=== PATIENT | female | born 1970 | race Caucasian/White ===

== ENCOUNTER 2021-03-25 09:16 | Emergency (ER) | payer BC ==
--- NOTE | 2021-03-25 09:33 | EDM.PDOC ---
ED HPI GENERAL MEDICAL PROBLEM - General Chief Complaint: ENT Problem Stated Complaint: FELL AND EYE IS SWOLLEN Time Seen by Provider: 03/25/21 09:21 Source of Information: Reports: Patient History Limitations: Reports: No Limitations - History of Present Illness INITIAL COMMENTS - FREE TEXT/NARRATIVE: Patient is a 50-year-old female who presents today after falling down the steps. Patient that she was moving a rug when she got tangled took a tumble. Patient that she hit the right side of her face. Patient she was able to get up walk around and even drive her self to the ER today. Patient mentioned that she did take some Motrin today as her eye started to swell up after she blew her nose. Patient states she has no change in vision no neck pain no headache no LOC no pain to extremities or trunk. Patient denies any nausea vomiting currently. right FACE Pain Score (Numeric/FACES): 3 - Related Data Allergies Allergy/AdvReac Type Severity Reaction Status Date / Time No Known Allergies Allergy Verified 03/25/21 09:26 Home Meds: Home Meds Acetaminophen/oxyCODONE [Percocet 325-5 MG] 1 each PO Q8HR PRN 5 Days #15 tab 03/25/21 [Rx] Acetaminophen/oxyCODONE [Percocet 325-5 MG] 1 each PO Q8HR PRN 7 Days #21 tab 03/25/21 [Rx] Clindamycin HCl 300 mg PO TID 7 Days #21 capsule 03/25/21 [Rx] Docusate Sodium 100 mg PO BID 7 Days #14 capsule 03/25/21 [Rx] SUMAtriptan [Imitrex] 100 mg PO ASDIRECTED 03/25/21 [History] ED ROS GENERAL - Review of Systems Review Of Systems: See Below Constitutional: Reports: No Symptoms HEENT: Reports: No Symptoms Respiratory: Reports: No Symptoms Cardiovascular: Reports: No Symptoms Endocrine: Reports: No Symptoms GI/Abdominal: Reports: No Symptoms : Reports: No Symptoms Musculoskeletal: Reports: No Symptoms Skin: Reports: No Symptoms Neurological: Reports: No Symptoms Psychiatric: Reports: No Symptoms Hematologic/Lymphatic: Reports: No Symptoms Immunologic: Reports: No Symptoms ED EXAM, HEAD INJURY - Physical Exam Exam: See Below Exam Limited By: No Limitations General Appearance: Alert, WD/WN, No Apparent Distress Head: Facial Swelling Eyes: Right Eye: Periorbital Changes, Bilateral Eye: EOMI, PERRL Ears: Normal External Exam Nose: Normal Inspection, Normal Mucousa, No Blood Neck: Non-Tender, Full Range of Motion, Normal Alignment Respiratory: No Respiratory Distress, Lungs Clear, Normal Breath Sounds Cardiovascular: Normal Peripheral Pulses, Regular Rate, Rhythm Back Exam: Normal Inspection, Full Range of Motion, Vertebral Tenderness Extremities: Normal Inspection, Normal Range of Motion Neurologic: tile mechanic helper II-XII nml As Tested, No Motor/Sensory Deficits, Alert, Oriented x 3 - [place] Coma Score Best Eye Response (Trace): (4) Open Spontaneously Best Verbal Response (Trace): (5) Oriented Best Motor Response (Trace): (6) Obeys Commands Course - Vital Signs Last Recorded V/S: Last Vital Signs Temp 96.7 F L 03/25/21 09:20 Pulse 68 03/25/21 10:58 Resp 17 03/25/21 10:58 BP 148/89 H 03/25/21 10:58 Pulse Ox 96 03/25/21 10:58 - Orders/Labs/Meds Meds: Medications Discontinued Medications Generic Name Dose Route Start Last Admin Trade Name Kraig PRN Reason Stop Dose Admin Ondansetron HCl 4 mg 03/25/21 10:20 03/25/21 10:32 Ondansetron 4 Mg Tab.Dis PO 03/25/21 10:21 Not Given ONETIME ONE Oxycodone/Acetaminophen 1 tab 03/25/21 10:20 03/25/21 10:30 Acetaminophen/Oxycodone 325-5 Mg Tab PO 03/25/21 10:21 1 tab ONETIME ONE Administration - Re-Assessments/Exams Free Text/Narrative Re-Assessment/Exam: 03/25/21 11:03 Has overall floor fracture but has good extraocular movement. We spoke to ENT at [facility] Dr. Whittaker who states that patient can be follow-up in a week as outpatient will provide patient number to call to obtain appointments. Patient will be sent home antibiotics and pain control. Departure - Departure Time of Disposition: 11:03 Disposition: Home, Self-Care 01 Condition: Good Clinical Impression: Orbital fracture - Discharge Information *PRESCRIPTION DRUG MONITORING PROGRAM REVIEWED*: Not Applicable *COPY OF PRESCRIPTION DRUG MONITORING REPORT IN PATIENT TIMO: Not Applicable Prescriptions: Clindamycin HCl 300 mg PO TID 7 Days #21 capsule Docusate Sodium 100 mg PO BID 7 Days #14 capsule Acetaminophen/oxyCODONE [Percocet 325-5 MG] 1 each PO Q8HR PRN 5 Days #15 tab PRN Reason: Pain (Severe 7-10) Acetaminophen/oxyCODONE [Percocet 325-5 MG] 1 each PO Q8HR PRN 7 Days #21 tab PRN Reason: Pain (Severe 7-10) Instructions: Orbital Floor Fracture Forms: ED Department Discharge Additional Instructions: The following information is given to patients seen in the emergency department who are being discharged to home. This information is to outline your options for follow-up care. We provide all patients seen in our emergency department with a follow-up referral. The need for follow-up, as well as the timing and circumstances, are variable depending upon the specifics of your emergency department visit. If you don't have a primary care physician on staff, we will provide you with a referral. We always advise you to contact your personal physician following an emergency department visit to inform them of the circumstance of the visit and for follow-up with them and/or the need for any referrals to a consulting specialist. The emergency department will also refer you to a specialist when appropriate. This referral assures that you have the opportunity for follow-up care with a specialist. All of these measure are taken in an effort to provide you with optimal care, which includes your follow-up. Under all circumstances we always encourage you to contact your private physician who remains a resource for coordinating your care. When calling for follow-up care, please make the office aware that this follow-up is from your recent emergency room visit. If for any reason you are refused follow-up, please contact the [facility] Emergency Department at and asked to speak to the emergency department charge nurse. Please follow up with your primary care physician. If you do not have a primary care physician, see below: ENT Dr. [facility] [phone] [place] [address] You were seen today for a fall and you suffered a right orbital bone blowout fracture. You have no entrapment of the eye muscles but there is some fat stuck into the fracture. We spoke to the ENT doctor at [facility] and you can be seen there next week as an outpatient. We will send you home with antibiotics and pain meds. In the meantime please do not blow your nose or have any strenuous activity. If he had any trouble moving your eye increased swelling or pain please return to the ED immediately. Sepsis Event Note (ED) - Evaluation Sepsis Screening Result: No Definite Risk - Focused Exam Vital Signs: Vital Signs Temp Pulse Resp BP Pulse Ox 03/25/21 10:58 68 17 148/89 H 96 03/25/21 09:20 96.7 F L 85 18 150/90 H 100 - Assessment/Plan Plan: Patient is a 50-year-old female who presents today for fall down steps. Patient is swollen over the right thigh. Patient has good extraocular movement. Will obtain CT head and facial bones to rule out any fractures or injuries. Patient this time not wanting any pain meds.
--- NOTE | 2021-03-25 10:15 | CT ---
Indication: Fell down stairs pain and swelling over right eye Technique: Volumetric multidetector CT images of the head were obtained without the administration of low osmolar intravenous contrast. Comparison: None available Findings: There is no intra-axial or extra-axial fluid collection. There is no mass effect or midline shift. The ventricles and sulci are normal in size and position for age. The brain parenchyma is grossly preserved in attenuation and morales-white differentiation. There is right periorbital preseptal soft tissue swelling with minimal subcutaneous emphysema. There is minimal air seen within the posterior extra conal space without evidence of retrobulbar hematoma. There is demonstration of a orbital blowout type fracture with subcutaneous emphysema within the periorbital soft tissues. The bony calvarium is grossly intact. The paranasal sinuses are clear. The mastoid air cells are well aerated. Impression: Demonstration of right periorbital preseptal soft tissue swelling and subcutaneous emphysema with an orbital blowout fracture of the right orbital floor. No evidence of acute intracranial abnormality. Please note that all CT scans at this facility use dose modulation, iterative reconstruction, and/or weight-based dosing when appropriate to reduce radiation dose to as low as reasonably achievable. Dictated by Cornelius Pappas MD @ 03/25/2021 10:13:[address] Cornelius Pappas @ Mar 25 2021 10:13AM
--- NOTE | 2021-03-25 10:19 | CT ---
Indication: Fall downstairs pain and swelling over right eye Technique: Volumetric multidetector CT images of the facial bones were obtained without the administration of IV contrast. Comparison: None available. Findings: The partially visualized brain is normal in attenuation without evidence of midline shift or fluid collection. The paranasal sinuses are clear without evidence of air-fluid level. There is demonstration of a right orbital blowout fracture with herniated orbital fat but without definite evidence of herniated extraocular muscle. There is moderate right periorbital preseptal soft tissue swelling and subcutaneous emphysema. The zygomatic arches are grossly intact. The bilateral maxillae are intact. The pterygoid plates are grossly intact. There is mildly displaced fracture of the right nasal bones. The anterior nasal spine is intact. The mandible is grossly well located. Moderate degenerative changes of the temporomandibular joints are appreciated. The partially visualized cervical spine is within normal limits. Impression: Demonstration of a right orbital blowout fracture with herniated orbital fat but without definite evidence of extraocular muscle involvement. There is moderate subcutaneous emphysema within the periorbital, preseptal soft tissues. There is no intraconal hematoma. Minimally displaced fracture of the left nasal bone. Please note that all CT scans at this facility use dose modulation, iterative reconstruction, and/or weight-based dosing when appropriate to reduce radiation dose to as low as reasonably achievable. Dictated by Cornelius Pappas MD @ 03/25/2021 10:19:[address] Cornelius Pappas @ Mar 25 2021 10:19AM
[2021-03-25] MEDS ORDERED: Acetaminophen/oxyCODONE 325-5 MG Tab PO ONE (10:20)
[2021-03-25] MEDS ORDERED: Ondansetron 4 MG Tab.DIS PO ONE (10:20)
--- NOTE | 2021-03-26 11:00 | PCM.SN.2 ---
- Free Text/Narrative Note: Sarah my not ENT called and states that the ENT plastic surgeon who I spoke to yesterday Dr. Whittaker will not be available to see the patient as he is going out of town for a month. We were able to call Dr. Almaguer and [facility] that can see the patient next week we spoke directly to him and his staff will call the patient and schedule appointment. I also called Mrs. Peña and spoke to her about this and gave her the phone number to follow-up with them if they do not call her. Patient is fully understandable. We also fax over the information and sent images to [facility] as well. Time patient scheduled to see the ENT next Monday.
== END 2021-03-25 11:25 | disposition home or self-care (01) ==
LOC: MW.ED 09:16
DX: S02.31XA Fracture of orbital floor, right side, initial encounter for closed fracture (principal); W18.09XA Striking against other object with subsequent fall, initial encounter; W10.9XXA Fall (on) (from) unspecified stairs and steps, initial encounter
CPT/HCPCS: 70450; 70486; 99283; A9270

== ENCOUNTER 2021-03-27 12:15 | Emergency (ER) | payer BC ==
[2021-03-27] MEDS ORDERED: Ketorolac 30 MG/ML SDV IM ONE (12:43)
[2021-03-27] MEDS ORDERED: Ondansetron 4 MG Tab.DIS PO ONE (12:43)
--- NOTE | 2021-03-27 12:48 | EDM.PDOC ---
ED HPI GENERAL MEDICAL PROBLEM - General Chief Complaint: General Stated Complaint: horibble head presure Time Seen by Provider: 03/27/21 12:22 Source of Information: Reports: Patient History Limitations: Reports: No Limitations - History of Present Illness INITIAL COMMENTS - FREE TEXT/NARRATIVE: Is a 51-year-old female presents today for increased pain to her right. Patient took a fall down steps and orbital blowout fracture that she scheduled see ENT for this upcoming Monday. Patient was sent home with Percocet but states that they make her nauseous she has not been able to take them and her pain has not been controlled by Motrin and Tylenol. Patient would like to have a medication switch. Patient brought in the Percocets to exchange them for what she would like Vicodin she is taking it before not upset her stomach is much. Patient currently denies any vision changes able to look around move freely patient has pain around the injury. Patient denies any other complaints or new injuries. Right eye Pain Score (Numeric/FACES): 10 - Related Data Allergies Allergy/AdvReac Type Severity Reaction Status Date / Time No Known Allergies Allergy Verified 03/27/21 12:39 Home Meds: Home Meds Acetaminophen/oxyCODONE [Percocet 325-5 MG] 1 each PO Q8HR PRN 7 Days #21 tab 03/25/21 [Rx] Clindamycin HCl 300 mg PO TID 7 Days #21 capsule 03/25/21 [Rx] Docusate Sodium 100 mg PO BID 7 Days #14 capsule 03/25/21 [Rx] SUMAtriptan [Imitrex] 100 mg PO ASDIRECTED 03/25/21 [History] Hydrocodone/Acetaminophen [Hydrocodone-Acetamin 5-325 mg] 1 each PO Q8HR PRN 7 Days #21 tablet 03/27/21 [Rx] Ondansetron [Zofran ODT] 4 mg PO Q6H PRN 5 Days #20 tab.dis 03/27/21 [Rx] Past Medical History HEENT History: Reports: None Cardiovascular History: Reports: None Respiratory History: Reports: None Gastrointestinal History: Reports: None Genitourinary History: Reports: None 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 Musculoskeletal History: Reports: None Neurological History: Reports: Migraines Psychiatric History: Reports: None Endocrine/Metabolic History: Reports: None Hematologic History: Reports: None Immunologic History: Reports: None Oncologic (Cancer) History: Reports: None Dermatologic History: Reports: None - Infectious Disease History Infectious Disease History: Reports: Chicken Pox - Past Surgical History Head Surgeries/Procedures: Reports: None HEENT Surgical History: Reports: None Cardiovascular Surgical History: Reports: None Respiratory Surgical History: Reports: None GI Surgical History: Reports: None Female Surgical History: Reports: Section Endocrine Surgical History: Reports: None Neurological Surgical History: Reports: None Musculoskeletal Surgical History: Reports: None Oncologic Surgical History: Reports: None Dermatological Surgical History: Reports: None Social & Family History - Family History Family Medical History: No Pertinent Family History - Tobacco Use Tobacco Use Status *Q: Unknown Ever Used Tobacco - Caffeine Use Caffeine Use: Reports: None - Recreational Drug Use Recreational Drug Use: No ED ROS GENERAL - Review of Systems Review Of Systems: See Below Constitutional: Reports: No Symptoms HEENT: Reports: Eye Pain Respiratory: Reports: No Symptoms Cardiovascular: Reports: No Symptoms Endocrine: Reports: No Symptoms GI/Abdominal: Reports: No Symptoms : Reports: No Symptoms Musculoskeletal: Reports: No Symptoms Skin: Reports: No Symptoms Neurological: Reports: No Symptoms Psychiatric: Reports: No Symptoms Hematologic/Lymphatic: Reports: No Symptoms Immunologic: Reports: No Symptoms ED EXAM, GENERAL - Physical Exam Exam: See Below Exam Limited By: No Limitations General Appearance: Alert, WD/WN, No Apparent Distress Eye Exam: Bilateral Eye: EOMI, PERRL Extremities: Normal Inspection Neurological: Alert, Oriented Course - Vital Signs Last Recorded V/S: Last Vital Signs Temp 96.8 F L 03/27/21 12:39 Pulse 87 03/27/21 12:39 Resp 18 03/27/21 12:39 BP 173/87 H 03/27/21 12:39 Pulse Ox 100 03/27/21 12:39 - Orders/Labs/Meds Meds: Medications Discontinued Medications Generic Name Dose Route Start Last Admin Trade Name Martq PRN Reason Stop Dose Admin Ketorolac Tromethamine 30 mg 03/27/21 12:43 03/27/21 12:59 Ketorolac 30 Mg/Ml Sdv IM 03/27/21 12:44 30 mg ONETIME ONE Administration Ondansetron HCl 4 mg 03/27/21 12:43 03/27/21 12:58 Ondansetron 4 Mg Tab.Dis PO 03/27/21 12:44 4 mg ONETIME ONE Administration Departure - Departure Time of Disposition: 12:46 Disposition: Home, Self-Care 01 Condition: Good Clinical Impression: Medication refill - Discharge Information *PRESCRIPTION DRUG MONITORING PROGRAM REVIEWED*: Not Applicable *COPY OF PRESCRIPTION DRUG MONITORING REPORT IN PATIENT TIMO: Not Applicable Prescriptions: Hydrocodone/Acetaminophen [Hydrocodone-Acetamin 5-325 mg] 1 each PO Q8HR PRN 7 Days #21 tablet PRN Reason: Pain (Moderate 4-6) Ondansetron [Zofran ODT] 4 mg PO Q6H PRN 5 Days #20 tab.dis PRN Reason: Vomiting Referrals: Irish Cabral HOG GRADER [Primary Care Provider] - Forms: ED Department Discharge Additional Instructions: The following information is given to patients seen in the emergency department who are being discharged to home. This information is to outline your options for follow-up care. We provide all patients seen in our emergency department with a follow-up referral. The need for follow-up, as well as the timing and circumstances, are variable depending upon the specifics of your emergency department visit. If you don't have a primary care physician on staff, we will provide you with a referral. We always advise you to contact your personal physician following an emergency department visit to inform them of the circumstance of the visit and for follow-up with them and/or the need for any referrals to a consulting specialist. The emergency department will also refer you to a specialist when appropriate. This referral assures that you have the opportunity for follow-up care with a specialist. All of these measure are taken in an effort to provide you with optimal care, which includes your follow-up. Under all circumstances we always encourage you to contact your private physician who remains a resource for coordinating your care. When calling for follow-up care, please make the office aware that this follow-up is from your recent emergency room visit. If for any reason you are refused follow-up, please contact the [facility] Emergency Department at and asked to speak to the emergency department charge nurse. Please follow up with your primary care physician. If you do not have a primary care physician, see below: [facility] [address] [place] [id number] My [facility] [address] [place] [address] You are seen today for increased pain from your previous eye injury. We have switch her medication to Vicodin since you tolerate this for the past. Please continue to follow-up with your primary care physician and ENT. Sepsis Event Note (ED) - Evaluation Sepsis Screening Result: No Definite Risk - Focused Exam Vital Signs: Vital Signs Temp Pulse Resp BP Pulse Ox 03/27/21 12:39 96.8 F L 87 18 173/87 H 100 - Assessment/Plan Plan: Patient is a 51-year-old female presents today for pain management. Patient was sent home on Percocets but she cannot tolerate those by mouth because of the nausea. Patient brought the prescription and the bottle fill. We will dispose and have patient switch over to Vicodin. Patient still scheduled see ENT.
== END 2021-03-27 13:36 | disposition home or self-care (01) ==
LOC: MW.ED 12:15
DX: H57.11 Ocular pain, right eye (principal); Z76.0 Encounter for issue of repeat prescription
CPT/HCPCS: 96372; 99283; A9270; J1885